=== PATIENT | female | born 1985 | race Caucasian/White ===

== ENCOUNTER 2021-10-01 15:01 | Emergency (ER) | payer OTHER, SELFPAY ==
--- NOTE | ~2021-10-01 | CT_ITS ---
EXAMINATION: CTA chest PE protocol DATE: 10/01/2021 18:08 INDICATION: cp, elevated dimer TECHNIQUE: Computed tomography angiography (CTA) of the chest was performed with 100 mL Omnipaque-350 intravenous contrast timed to evaluate the pulmonary arteries. Coronal maximum intensity projection 3D-reconstructions were created by the technologist. The dose-length product (DLP) was 1058.92 mGy-cm . Automated exposure control and iterative reconstruction technique were employed. COMPARISON: None. FINDINGS: Study quality: Mildly limited by beam hardening and late contrast phase, overall adequate. Pulmonary arteries: No pulmonary emboli detected. Thoracic aorta: Normal. Lung parenchyma and airways: Clear. Thoracic inlet, axillae and chest wall: Unremarkable. Mediastinum: Normal. Heart and pericardium: Normal. Coronary artery calcifications: Absent. Pleura: Unremarkable. Upper abdomen: No significant finding. Bones: No acute osseous finding. IMPRESSION: No CT evidence of acute pulmonary embolus. Reviewed, dictated and finalized at location K.
--- NOTE | ~2021-10-01 | XR_ITS ---
EXAMINATION: XR chest 2V Exam Date/Time: 10/01/2021 15:30 CDT HISTORY: midsternal chest pain Comparison: None available. RESULT: Lines, tubes, and devices: None. Lungs and pleura: Clear. Cardiomediastinal silhouette: Unremarkable. Other: No acute osseous or upper abdominal finding. IMPRESSION: No acute cardiopulmonary process. Reviewed, dictated and finalized at location K.
[2021-10-01 15:03] VITALS: BP 154/89; PULSE 86; RESP 16; TEMP 36.4; O2SAT 100
--- NOTE | 2021-10-01 15:07 | ECG_ITS ---
Measurements Intervals [place] Rate: 83 P: -16 OK: 130 QRS: 15 QRSD: 99 T: 2 QT: 367 QTc: 432 Interpretive Statements SINUS OR ECTOPIC ATRIAL RHYTHM BORDERLINE T WAVE ABNORMALITY- INFERIOR LEADS BORDERLINE ECG Electronically Signed On 10-01-2021 23:10:48 CDT by Demetrio North D.O.
[2021-10-01 15:39] LABS: Basophils Absolute Auto 0.1 K/mm3 (0.0-0.1); Basophils Percent Auto 0.9 % (0.2-1.2); Eosinophils Absolute Auto 0.2 K/mm3 (0-0.3); Eosinophils Percent Auto 3.4 % (0-4.4); Hematocrit 41.2 % (37.0-47.0); Hemoglobin 13.3 g/dL (12.0-15.0); Immature Granulocyte Absolute 0.02 K/mm3 (0.00-0.031); Immature Granulocyte Percent A 0.4 % (0-0.5); Lymphocytes Absolute Auto 2.51 K/mm3 (0.9-3.2); Lymphocytes Percent Auto 44.6 % (18.3-44.2); Mean Corpuscular HGB Conc 32.3 g/dl (32-36); Mean Corpuscular Hemoglobin 29.1 pg (26-34); Mean Corpuscular Volume 90.2 fl (80-100); Mean Platelet Volume 9.6 fl (7.4-10.4); Monocytes Absolute Auto 0.4 K/mm3 (0.1-0.6); Monocytes Percent Auto 7.5 % (2.6-8.5); Neutrophils Absolute Auto 2.4 K/mm3 (1.3-6.7); Neutrophils Percent Auto 43.2 % (45.5-73.1); Platelet Count Result 289 k/mm3 (150-375); Red Blood Count 4.57 M/mm3 (4.2-5.4); White Blood Count 5.6 K/mm3 (4.5-10.0)
[2021-10-01 15:49] LABS: Partial Thromboplastin Time 20.3 SECONDS (22.3-36.8)
[2021-10-01 15:50] LABS: Alanine Aminotransferase 26 U/L (6-35); Albumin Level 4.6 g/dL (3.5-5.1); Alkaline Phosphatase 71 U/L (38-126); Anion Gap 9 mmol/L (8-16); Aspartate Amino Transferase 26 U/L (14-36); Bilirubin,Total 0.4 mg/dL (0.2-1.3); Blood Urea Nitrogen 10 mg/dL (7-17); Calcium 8.9 mg/dL (8.4-10.2); Carbon Dioxide 25 mmol/L (22-30); Chloride 104 mmol/L (98-107); Estimated CRCL calculation 169 ml/min; Estimated Glomerular Filt Rate > 60; Glucose 91 mg/dL (65-110); Lipase 81 U/L (23-300); Potassium 3.8 mmol/L (3.4-5.0); Sodium 138 mmol/L (137-145)
[2021-10-01 16:01] LABS: Troponin I < 0.012 ng/mL (0.000-0.034)
[2021-10-01 16:30] LABS: D Dimer 0.61 ug/mL (<0.48)
--- NOTE | 2021-10-01 16:50 | ED.CHESTPAIN ---
HPI - Chest Pain General Chief Complaint: Chest Pain <Nicole Walter PA-C - Last Filed: 10/01/21 19:03> Stated Complaint: chest pain <Nicole Walter PA-C - Last Filed: 10/01/21 19:03> Time Seen by Provider: 10/01/21 15:43 <Nicole Walter PA-C - Last Filed: 10/01/21 19:03> Source: patient <Nicole Walter PA-C - Last Filed: 10/01/21 19:03> Mode of arrival: ambulatory <Nicole Walter PA-C - Last Filed: 10/01/21 19:03> Limitations: no limitations <Nicole Walter PA-C - Last Filed: 10/01/21 19:03> History of Present Illness HPI narrative: This is a 36 year old female that presents to the ER for substernal chest pain present since this morning. Reports she was just around the house when it started. The pain is achy in nature and constant. Denies fever, shortness of breath or vomiting. <Nicole aWlter PA-C - Last Filed: 10/01/21 19:03> Related Data Allergies/Adverse Reactions: Allergies Allergy/AdvReac Type Severity Reaction Status Date / Time No Known Allergies Allergy Verified 10/01/21 18:12 <Nicole Walter PA-C - Last Filed: 10/01/21 19:03> Review of Systems Review of Systems: CONSTITUTIONAL: Denies fever CARDIOVASCULAR: Reports chest pain. Denies edema. RESPIRATORY: Denies dyspnea. GASTROINTESTINAL: Denies vomiting <Nicole Walter PA-C - Last Filed: 10/01/21 19:03> All systems reviewed & are unremarkable except as noted in HPI and below <Nicole Walter PA-C - Last Filed: 10/01/21 19:03> [facility] Past Medical History Medical History: Medical History (Updated 10/01/21 @ 19:03 by Nicole Walter PA-C) History of anxiety <Nicole Walter PA-C - Last Filed: 10/01/21 19:03> Social History Social History: Social History (Updated 10/01/21 @ 17:00 by Nicole Walter PA-C) Smoking status: Never smoker <Nicole Walter PA-C - Last Filed: 10/01/21 19:03> Course LINE WALKER/PA Physician Supervision For this patient encounter, I reviewed the LINE WALKER or PA documentation, treatment plan, and medical decision making <Clement Edouard MD - Last Filed: 10/01/21 19:08> Vital Signs Vital signs: Vital Signs Temperature 97.6 F 10/01/21 15:03 Pulse Rate 86 10/01/21 15:03 Respiratory Rate 16 10/01/21 15:03 Blood Pressure 154/89 H 10/01/21 15:03 Pulse Oximetry 100 10/01/21 15:03 Oxygen Delivery Room Air 10/01/21 15:03 Temperature 97.6 F 10/01/21 15:03 Pulse Rate 92 10/01/21 18:15 Respiratory Rate 15 10/01/21 18:15 Blood Pressure 154/89 H 10/01/21 15:03 Pulse Oximetry 100 10/01/21 18:15 Oxygen Delivery Room Air 10/01/21 15:03 <Nicole Walter PA-C - Last Filed: 10/01/21 19:03> Vital Signs Temperature 97.6 F 10/01/21 15:03 Pulse Rate 86 10/01/21 15:03 Respiratory Rate 16 10/01/21 15:03 Blood Pressure 154/89 H 10/01/21 15:03 Pulse Oximetry 100 10/01/21 15:03 Oxygen Delivery Room Air 10/01/21 15:03 Temperature 97.6 F 10/01/21 15:03 Pulse Rate 92 10/01/21 18:15 Respiratory Rate 15 10/01/21 18:15 Blood Pressure 154/89 H 10/01/21 15:03 Pulse Oximetry 100 10/01/21 18:15 Oxygen Delivery Room Air 10/01/21 15:03 <Clement Edouard MD - Last Filed: 10/01/21 19:08> MDM - Chest Pain MDM Narrative Medical decision making narrative: Patient presents to the emergency department for chest pain ongoing today. Her vitals are stable. Oxygen saturation has remained normal on room air. CBC metabolic panel without concerning findings. EKG without concerning ST changes and baseline and 3-hour troponin are negative. D-dimer was elevated, so CTA of the chest was obtained. This is without evidence of PE or acute cardiopulmonary abnormality. Patient and family updated on case findings. Her heart score is a 1. She is stable and felt appropriate for further outpatient evaluation. She was given warnings to return to the ER Patient reported an area of concern
[2021-10-01 17:40] VITALS: PULSE 93; RESP 19; O2SAT 100
[2021-10-01 17:42] VITALS: PULSE 100
[2021-10-01 17:45] VITALS: PULSE 90; RESP 18; O2SAT 100
[2021-10-01] MEDS: FAMOTIDINE 20 MG/2 ML VIAL IV PUSH (18:12)
[2021-10-01 18:15] VITALS: PULSE 92; RESP 15; O2SAT 100
[2021-10-01 18:58] LABS: Troponin I < 0.012 ng/mL (0.000-0.034)
[2021-10-01] MEDS: KETOROLAC 15 MG/ML VIAL (*BKC) IV PUSH (19:22)
[2021-10-01 19:57] VITALS: BP 151/87; PULSE 93; RESP 17; O2SAT 98
== END 2021-10-01 19:55 | disposition home or self-care (01) ==
PROVIDERS: Physician Assistant; Emergency Provider Emergency Medicine; PCP Family Medicine
DX: R07.2 Precordial pain (principal); R94.31 Abnormal electrocardiogram [ECG] [EKG]
CPT/HCPCS: 36415; 71046; 71275; 80053; 81025; 83690; 84484; 85025; 85380; 85610; 85730; 93005; 96365; 96375; 99284; J0131; J1885; Q9967

== ENCOUNTER 2021-10-02 07:57 | Outpatient (CLI) | payer OTHER, SELFPAY ==
--- NOTE | ~2021-10-02 | US_ITS ---
EXAMINATION: US venous doppler [facility] DATE: 10/02/2021 08:27 INDICATION: Left lower limb pain and swelling TECHNIQUE: Grayscale ultrasound images without and with compression and Doppler ultrasound images of the left lower extremity veins were obtained. COMPARISON: None. FINDINGS: The visualized portions of left common femoral vein, profunda (deep) femoral vein, femoral vein, popl iteal vein, peroneal veins, posterior tibial veins, gastrocnemius vein and greater saphenous vein out flow are patent. IMPRESSION: 1. No deep venous thrombosis in the left lower limb. Reviewed, dictated and finalized at location A.
== END 2021-10-02 07:58 | disposition home or self-care (01) ==
PROVIDERS: PCP Family Medicine; Visit Provider Family Medicine
DX: M79.89 Other specified soft tissue disorders (principal); M79.662 Pain in left lower leg
CPT/HCPCS: 93971

== ENCOUNTER 2022-11-27 19:01 | Emergency (ER) | payer OTHER, SELFPAY ==
--- NOTE | 2022-11-27 19:04 | ED.URI ---
HPI - URI/Sore Throat General Chief Complaint: Upper Respiratory Infection Stated Complaint: Cold symptoms Source: patient and RN notes reviewed Mode of arrival: ambulatory Limitations: no limitations History of Present Illness HPI Narrative: Patient is a 37-year-old female who presents to the [facility] with complaints of cold symptoms since Saturday. Patient states that she developed some congestion and drainage on Saturday. She reports developing frequent sneezing on Saturday. She states that she has had a frequent nonproductive cough since Saturday. She states that her cough continues to worsen. She reports some chest tightness that occurs only with cough. She denies chest pain. She denies shortness of breath. Denies sore throat or ear pain. States that she has not had any fevers. Her respirations are currently unlabored. She does not appear in any acute distress. Related Data Home Medications Medication Instructions Recorded Confirmed fluoxetine 20 mg capsule 20 mg PO DAILY 11/27/22 11/27/22 metoprolol succinate 25 mg 25 mg PO DAILY 11/27/22 11/27/22 tablet,extended release 24 hr potassium chloride 20 mEq 20 meq PO DAILY 11/27/22 11/27/22 tablet,extended release(part/cryst) (Fuad-Damian M) Allergies Allergy/AdvReac Type Severity Reaction Status Date / Time No Known Allergies Allergy Verified 11/27/22 19:04 Review of Systems Review of Systems: CONSTITUTIONAL: Denies fever, chills, or sweats. EYES: Denies visual changes, redness, or discharge. ENT: Denies otalgia and sore throat. Reports nasal congestion and drainage. CARDIOVASCULAR: Denies chest pain, palpitations, or edema. RESPIRATORY: Reports cough but denies dyspnea. GASTROINTESTINAL: Denies abdominal pain, nausea, vomiting, or diarrhea. GENITOURINARY: Denies dysuria or hematuria. SKIN: Denies rash or itching. MUSCULOSKELETAL: Denies back pain, joint pain, or myalgia. NEUROLOGIC: Denies headache, numbness, or weakness. Pertinent positives per HPI. [facility] Past Medical History Medical History History of anxiety Social History Social History Smoking status: Never smoker Comments At the time of my signature, I reviewed and agree with the nursing past medical, surgical, social, and family history. There is no relevant family history pertinent to the patient complaint. Exam Narrative: GENERAL: This is a well-nourished, well-developed patient, in no apparent distress. HEAD: normocephalic, atraumatic. EYES: Sclera clear/white. Vision is grossly intact. EARS: External ears normal. Hearing grossly intact. NOSE: Mild nasal congestion and rhinorrhea. THROAT: Mucous membranes moist, posterior pharynx clear. NECK: Neck supple, non-tender without lymphadenopathy, masses or thyromegaly. CARDIOVASCULAR: Regular rate and rhythm without murmurs, gallops, or rubs. RESPIRATORY: Clear to auscultation. Breath sounds equal bilaterally. No wheezes, rales, or rhonchi. GASTROINTESTINAL: Abdomen soft, non-tender, nondistended. Bowel sounds are active. No hepato-splenomegaly, or palpable masses. No guarding. SKIN: warm, intact with no suspicious lesions or rash, good texture and turgor. NEURO: awake, alert, and oriented to person, place and time. There were no obvious focal neurologic abnormalities. Course Course Level of Care: Express Care Visit Vital Signs Vital signs: Vital Signs Temperature 98.4 F 11/27/22 19:09 Pulse Rate 96 11/27/22 19:09 Respiratory Rate 16 11/27/22 19:09 Blood Pressure 147/83 H 11/27/22 19:09 Pulse Oximetry 100 11/27/22 19:09 Temperature 98.4 F 11/27/22 19:09 Pulse Rate 96 11/27/22 19:09 Respiratory Rate 16 11/27/22 19:09 Blood Pressure 147/83 H 11/27/22 19:09 Pulse Oximetry 100 11/27/22 19:09 Reviewed MDM - URI/Sore Throat MDM Narrative Medical decision making narrativ
[2022-11-27 19:09] VITALS: BP 147/83; PULSE 96; RESP 16; TEMP 36.9; O2SAT 100
== END 2022-11-27 19:38 | disposition home or self-care (01) ==
PROVIDERS: Emergency Provider Nurse Practitioner
DX: J20.9 Acute bronchitis, unspecified (principal); F41.9 Anxiety disorder, unspecified; F17.210 Nicotine dependence, cigarettes, uncomplicated
CPT/HCPCS: 87804; 99213; G0463